=== PATIENT | female | born 1975 | race Caucasian/White ===

== ENCOUNTER 2016-08-28 20:56 | Inpatient (IN) | payer BC ==
[~2016-08-28] VITALS: Ht 167.6 cm; Wt 109.4 kg
[~2016-08-28 20:56] MED LIST: ETHI1TAB12 PO; LACT1CAP35; OXYC-302; PARO40TA3 PO; ZINC50TA35
[2016-08-28] MEDS ORDERED: SODIUM CHLORIDE 0.9% 1,000 ML IV ONE (21:22)
[2016-08-28] MEDS ORDERED: HYDROmorphone 1 MG/ML, 1ML IVPush PRN (21:30)
[2016-08-28] MEDS ORDERED: ONDANSETRON 2MG/ML, 2ML IVPush ONE (21:30)
[2016-08-28] MEDS ORDERED: SODIUM CHLORIDE FLUSH 10ML SYR IVF ONE (21:30)
[2016-08-28] MEDS ORDERED: HYDROmorphone 1 MG/ML, 1ML ONE (21:52)
[2016-08-28] MEDS ORDERED: ONDANSETRON 2MG/ML, 2ML ONE (21:52)
[2016-08-28 21:57] LABS: ASPARTATE AMINO TRANSFERASE 630 U/L (15-37); BLOOD UREA NITROGEN 9 mg/dL (7-18)
[2016-08-28] MEDS ORDERED: SODIUM CHLORIDE FLUSH 10ML SYR IVF PRN (23:30)
[2016-08-28] MEDS ORDERED: LOSA50TA6 PO (23:52)
[2016-08-28] MEDS ORDERED: CHOL400C PO (23:52)
[2016-08-28] MEDS ORDERED: FLUO40CA2 PO (23:52)
[2016-08-28] MEDS ORDERED: CETI10CA PO (23:52)
[2016-08-28] MEDS ORDERED: METF850T2 PO (23:52)
[2016-08-29] MEDS ORDERED: OMNIPAQUE 350 MG/ML, 100ML BOTTLE ONE (00:28)
[2016-08-29] MEDS ORDERED: ONDANSETRON 2MG/ML, 2ML IVPush PRN ×2 (00:30→07:30)
[2016-08-29] MEDS ORDERED: LABETALOL 5MG/ML, 20ML IVPush PRN (00:30)
[2016-08-29] MEDS ORDERED: ENOXAPARIN 40 MG/0.4 ML SQ SCH (00:30)
[2016-08-29] MEDS ORDERED: PROMETHAZINE 25 MG/ML, 1ML IM PRN (00:30)
[2016-08-29] MEDS ORDERED: ENALAPRILAT 1.25 MG/ML, 2ML IVPush PRN ×2 (00:30→14:30)
[2016-08-29] MEDS: AMPICILLIN/SULBACTAM 3 GM in SODIUM CHLORIDE 0.9% 100 ML IV SCH ×3 (00:30→14:29)
[2016-08-29] MEDS ORDERED: DEXTROSE 50%, 50ML SYRINGE IVPush PRN ×3 (01:00→20:00)
[2016-08-29] MEDS: INSULIN ASPART 100 UNITS/ML, PEN SQ-INSULIN SCH ×5 (01:00→20:46)
[2016-08-29] MEDS ORDERED: DEXTROSE 4 GM TAB.CHEW PO PRN ×3 (01:00→20:00)
[2016-08-29] MEDS ORDERED: GLUCAGON 1 MG IM PRN ×2 (01:00→20:00)
[2016-08-29 02:01] VITALS: BP 126/76
[2016-08-29] MEDS: SODIUM CHLORIDE 0.9% 1,000 ML IV SCH ×4 (02:26→21:20)
[2016-08-29] MEDS: morphine SULFATE 10 MG/ML, 1ML IVPush PRN ×2 (03:43→06:33)
[2016-08-29 05:26] LABS: BLOOD UREA NITROGEN 9 mg/dL (7-18)
[2016-08-29 05:36] LABS: ASPARTATE AMINO TRANSFERASE 434 U/L (15-37); TOTAL IRON BINDING CAPACITY 391 mcg/dL (250-450)
[2016-08-29 07:07] LABS: HEPATITIS C VIRUS ANTIBODY Nonreactive (Nonreactive)
[2016-08-29] MEDS ORDERED: FENTANYL PF 250 MCG/5ML ONE (07:15)
[2016-08-29] MEDS ORDERED: LABETALOL 5MG/ML, 20ML IV PRN (07:30)
[2016-08-29] MEDS ORDERED: hydrALAzine 20 MG/ML, 1ML IV PRN (07:30)
[2016-08-29] MEDS ORDERED: PROMETHAZINE 25 MG/ML, 1ML IV PRN (07:30)
[2016-08-29] MEDS ORDERED: MEPERIDINE/PF 25MG/0.5ML IVPush PRN (07:30)
[2016-08-29] MEDS ORDERED: MIDAZOLAM 1 MG/ML, 2ML IV PRN (07:30)
[2016-08-29] MEDS ORDERED: OXYcodone 5 MG/5 ML ORAL.SOL UDC PO PRN (07:30)
[2016-08-29] MEDS ORDERED: BUPIVACAINE/PF-EPI 0.5% 1:200K ONE (07:40)
[2016-08-29] MEDS ORDERED: KETOROLAC 30 MG/1 ML ONE (07:42)
[2016-08-29] MEDS ORDERED: PROPOFOL 10 MG/ML, 20ML ONE (07:42)
[2016-08-29] MEDS ORDERED: GLYCOPYRROLATE 0.2MG/1ML ONE (07:42)
[2016-08-29] MEDS ORDERED: CEFAZOLIN 1,000 MG ONE (07:42)
[2016-08-29] MEDS ORDERED: SUCCINYLCHOLINE 20 MG/ML, 10ML ONE (07:42)
[2016-08-29] MEDS ORDERED: METOCLOPRAMIDE 5 MG/ML, 2ML ONE (07:42)
[2016-08-29] MEDS ORDERED: ROCURONIUM 10 MG/ML ONE (07:42)
[2016-08-29] MEDS ORDERED: ONDANSETRON 2MG/ML, 2ML ONE (07:42)
[2016-08-29] MEDS ORDERED: FENTANYL PF 100 MCG/2ML ONE ×2 (08:51→09:29)
[2016-08-29] MEDS ORDERED: OXYcodone 5 MG/5 ML ORAL.SOL UDC ONE (08:51)
[2016-08-29] MEDS ORDERED: MEPERIDINE/PF 25MG/0.5ML ONE (08:51)
[2016-08-29] MEDS ORDERED: SODIUM CHLORIDE FLUSH 10ML SYR IVF SCH (09:00)
[2016-08-29] MEDS: FENTANYL PF 100 MCG/2ML IV PRN ×4 (09:02→09:36)
[2016-08-29] MEDS ORDERED: HYDROmorphone 1 MG/ML, 1ML ONE (09:11)
[2016-08-29] MEDS: HYDROmorphone 1 MG/ML, 1ML IV PRN ×2 (09:12→09:22)
[2016-08-29] MEDS ORDERED: ONDANSETRON 2MG/ML, 2ML IV PRN (10:30)
[2016-08-29] MEDS ORDERED: MEPERIDINE/PF 25MG/0.5ML IV PRN (10:30)
[2016-08-29 12:25] VITALS: BP 128/76
[2016-08-29] MEDS: POTASSIUM CHLORIDE 20 MEQ in SODIUM CHLORIDE 0.9% 1,000 ML IV SCH ×2 (14:29→18:35)
[2016-08-29] MEDS: OXYcodone/APAP 5/325MG TABLET PO PRN ×3 (14:38→23:48)
[2016-08-29 19:53] VITALS: BP 132/81
[2016-08-29] MEDS: NITROFURANTOIN (MACROBID) 100 MG CAPSULE PO SCH (21:07)
[2016-08-29] MEDS: SODIUM CHLORIDE FLUSH 10ML SYR IVF SCH (21:07)
[2016-08-29 23:41] VITALS: BP 137/88
[2016-08-30] MEDS: POTASSIUM CHLORIDE 20 MEQ in SODIUM CHLORIDE 0.9% 1,000 ML IV SCH ×2 (01:57→10:45)
[2016-08-30 02:48] VITALS: BP 132/88
[2016-08-30] MEDS: SODIUM CHLORIDE 0.9% 1,000 ML IV SCH (03:40)
[2016-08-30] MEDS: OXYcodone/APAP 5/325MG TABLET PO PRN ×4 (05:04→16:40)
[2016-08-30 05:46] LABS: ASPARTATE AMINO TRANSFERASE 210 U/L (15-37); BLOOD UREA NITROGEN 6 mg/dL (7-18)
[2016-08-30] MEDS ORDERED: ENOXAPARIN 40 MG/0.4 ML SQ SCH (06:00)
[2016-08-30 06:49] VITALS: BP 137/90
[2016-08-30] MEDS: INSULIN ASPART 100 UNITS/ML, PEN SQ-INSULIN SCH ×3 (07:00→16:00)
[2016-08-30] MEDS: SODIUM CHLORIDE FLUSH 10ML SYR IVF SCH (09:00)
[2016-08-30] MEDS: NITROFURANTOIN (MACROBID) 100 MG CAPSULE PO SCH (09:27)
[2016-08-30] MEDS ORDERED: BISACODYL 5 MG EC TABLET PO SCH (10:00)
[2016-08-30] MEDS ORDERED: OXYC-302 PO (10:45)
[2016-08-30] MEDS ORDERED: ONDA4TAB7 PO (10:46)
[2016-08-30] MEDS ORDERED: CEPH-368 PO (10:46)
[2016-08-30] MEDS ORDERED: MAGNESIUM HYDROXIDE 8%, 30ML UDC PO SCH (11:00)
[2016-08-30 13:17] VITALS: BP 125/79
[2016-08-30] MEDS ORDERED: BISACODYL 10 MG SUPP PR PRN (16:30)
== END 2016-08-30 20:00 | disposition home or self-care (01) | DRG 417 ==
LOC: ED 22:10 → EDIP 23:26 → 3NE 08-29 01:40 → 4NOR 08-29 10:04
PROVIDERS: ADMIT Internal Medicine; ATTEND Internal Medicine
PROC: 0FT44ZZ Resection of Gallbladder, Percutaneous Endoscopic Approach (ICD-10-PCS; principal; 2016-08-29 09:00)
DX: K80.12 Calculus of gallbladder with acute and chronic cholecystitis without obstruction (principal); K72.00 Acute and subacute hepatic failure without coma; N39.0 Urinary tract infection, site not specified; F32.9 Major depressive disorder, single episode, unspecified; I10 Essential (primary) hypertension; E11.65 Type 2 diabetes mellitus with hyperglycemia; K82.8 Other specified diseases of gallbladder; N73.9 Female pelvic inflammatory disease, unspecified; E66.01 Morbid (severe) obesity due to excess calories; Z98.84 Bariatric surgery status; Z68.37 Body mass index [BMI] 37.0-37.9, adult; Z90.79 Acquired absence of other genital organ(s); Z79.899 Other long term (current) drug therapy; Z68.38 Body mass index [BMI] 38.0-38.9, adult
CPT/HCPCS: 36415; 74177; 76700; 80053; 80074; 81001; 82550; 82962; 83036; 83540; 83550; 83690; 84443; 84703; 85025; 87086; 88304; 96361; 96365; 96375; J0295; J0690; J1170; J1650; J1885; J2175; J2405; J2550; J2704; J3010; J3480; J3490; Q9967; J0330; J2270; J2765; J7030